=== PATIENT | female | born 1985 | race Caucasian/White ===

== ENCOUNTER 2016-06-18 12:14 | Emergency (ER) | payer OTHER ==
[2016-06-18 15:20] VITALS: BP 114/68
[2016-06-18] MEDS ORDERED: NS 0.9% 1000 ML* 1,000 ML IV ONE ×2 (16:42→18:23)
[2016-06-18] MEDS ORDERED: Oseltamivir CAP* 75 MG PO ONE (16:42)
[2016-06-18] MEDS ORDERED: Metoclopramide IV* 5 MG/ML 2 ML VIAL IV ONE (16:42)
--- NOTE | 2016-06-18 17:47 | RAD ---
INDICATION: Chest pain. Requisition lists left lower lobectomy as part of the patient's medical history. COMPARISON: Numerous previous chest x-rays, most recently dated September 03, 2011 TECHNIQUE: PA and lateral views of the chest were obtained. FINDINGS: The heart and mediastinum are normal in size and contour. Linear density is seen at the left lung base similar in appearance to the previous chest x-ray. Otherwise the lungs are grossly clear. There is no evidence of large pleural effusion. Visualized bones are normal for the patient's age. There is no radiographic evidence of free air beneath the diaphragm IMPRESSION: No radiographic evidence of acute cardiopulmonary disease.
[2016-06-18 18:00] LABS: Hematocrit 37 % (35-47); Hemoglobin 12.8 g/dl (12.0-16.0); Mean Corpuscular HGB Conc 35 g/dl (31-36); Mean Corpuscular Hemoglobin 32 pg (27-31); Mean Corpuscular Volume 91 fL (80-97); Mean Platelet Volume 8 um3 (7.4-10.4); Red Blood Count 4.03 10^6/ul (4.0-5.4); Red Cell Distribution Width 12 % (10.5-15); White Blood Count 5.1 10^3/ul (3.5-10.8)
[2016-06-18 18:09] LABS: Albumin 3.9 g/dL (3.2-5.2); BUN/Creatinine Ratio 7.3 (8-20); Calcium 9.2 mg/dL (8.6-10.3); EGFR African American 163.7 (>60); EGFR Non-African American 127.3 (>60); Globulin 3.1 g/dL (2-4); Potassium 3.4 mmol/L (3.5-5.0); Total Bilirubin 0.3 mg/dL (0.2-1.0)
[2016-06-18 18:11] LABS: Troponin I 0.01 ng/mL (<0.04)
[2016-06-18] MEDS ORDERED: Metoclopramide TAB* 10 MG PO ONE (19:20)
[2016-06-18] MEDS ORDERED: Acetaminophen TAB* 325 MG PO ONE (19:20)
--- NOTE | 2016-06-21 07:56 | ED ---
Dennis Fisher Rebecca, scribed for Mike Nielsen MD on 06/18/16 at 1629 . - HPI Summary HPI Summary: Pt is a 31 y/o F who presents to ED c/o influenza exacerbation. Pt c/o SOB, vomiting and abd cramping. SOB began gradually a few days ago, has been constant since onset and was at its worse this morning at 0400. Abd cramping is diffuse and currently ranked 7/10. Pt was evaluated by her PCP this morning where she tested positive for influenza type A. She was given Tamiflu and advised that if her fever elevated beyond 101, to come to ED. At noon she took Tylenol and Tamiflu, vomited 1x at 1245. Sx aggravated and alleviated by nothing. Denies vaginal bleeding. Confirms that she received a flu shot this year. Pt is 13 weeks . PSHx left lower lobectomy. 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 A0 IF THERE IS ONE, PLEASE SEE DICTATION BY DR. NIELSEN FOR FURTHER INFORMATION. - History of Current Complaint Chief Complaint: EDNauseaVomitDiarrh Stated Complaint: 13WKS PREG/ + FOR FLU Time Seen by Provider: 06/18/16 16:26 Hx Obtained From: Patient Chief Complaint: Other: - Influenza Onset/Duration: Started Days Ago - 2 days ago, Still Present Timing: Constant Severity: Moderate Current Severity: Moderate Pain Intensity: 7 Location of Pain: Diffuse Character: Cramping Aggravating Factors: Nothing Alleviating Factors: Nothing Associated Signs and Symptoms: Positive: Fever, Vomiting, Other: - SOB. Negative: Vaginal Bleeding or Discharge - Assessment Hx Now: Yes Hx : 1 Hx Para: 0 Vaginal Bleeding Amount: None - Additional Pertinent History Primary Care Physician: Dr. Zhou - Allergies/Home Medications Allergies/Adverse Reactions: Allergies Allergy/AdvReac Type Severity Reaction Status Date / Time Erythromycin Allergy Severe Rash Verified 06/18/16 17:16 Amoxicillin [From Augmentin] Allergy Itching Verified 06/18/16 17:16 Clavulanic Acid Allergy Itching Verified 06/18/16 17:16 [From Augmentin] Duloxetine [From Cymbalta] Allergy Unknown Verified 06/18/16 17:16 Reaction Details Cymbalta Allergy See Comment Uncoded 06/18/16 17:18 PMH/Surg Hx/FS Hx/Imm Hx Endocrine/Hematology History: Reports: Other Endocrine/Hematological Disorders - "immune disorder" Cardiovascular History: Denies: Hx Pacemaker/ICD Sensory History: Denies: Hx Hearing Aid Psychiatric History: Denies: Hx Panic Disorder - Surgical History Surgery Procedure, Year, and Place: LUNG LOBECTOMY LLL 2012 Infectious Disease History: Yes Infectious Disease History: Denies: Traveled Outside the [place] in Last 30 Days - Family History Known Family History: Positive: Other - HLD - Social History Lives: With Family Alcohol Use: Occasionally Hx Substance Use: No Substance Use Type: Reports: None Hx Tobacco Use: No Smoking Status (MU): Never Smoked Tobacco Review of Systems - ROS Summary Review of Systems Summary: IF THERE IS ONE, PLEASE SEE DICTATION BY DR. NIELSEN FOR FURTHER INFORMATION. Positive: Shortness Of Breath Positive: Abdominal Pain - cramping, Vomiting - x Positive: other - Denies vaginal bleeding All Other Systems Reviewed And Are Negative: Yes Physical Exam - Summary Physical Exam Summary: GENERAL: Awake, alert, oriented, no acute distress, very pleasant HEAD/FACE: Head is normocephalic, atraumatic EYES: Anicteric sclera, clear conjunctiva ENT: Mucous membranes moist, no erythema, no discharge, no lesions, neck is supple, trachea is midline, no JVD CARDIAC: Regular rhythm, tachycardic, S1, S2, no rub, no murmur, no gallop, 2+ radial and pedal pulses bilaterally RESPIRATORY: Clear to auscultation bilaterally with no rales, rhonchi, or wheezes, non-tender ABDOMEN: Bowel sounds positive, no bruit, soft, non-tender, no CVA tenderness EXTREMITIES: No edema, warm, dry, moving all extremities in a grossly normal manner NEUROLOGICAL: Mood is appropriate, moving all extremities in a grossly normal manner IF THERE IS ONE, PLEASE SEE DICTATION BY DR. NIELSEN FOR FURTHER INFORMATION. - Physical Exam Triage Information Reviewed: Yes Vital Signs Reviewed: Yes Diagnostics - Vital Signs Vital Signs Temp Pulse Resp BP Pulse Ox 06/18/16 15:20 99.1 F 89 16 114/68 100 06/18/16 12:34 100 F 102 16 133/67 100 - Laboratory Result Diagrams: 06/18/16 17:33 06/18/16 17:33 Lab Statement: Any lab studies that have been ordered have been reviewed, and results considered in the medical decision making process. - Radiology CXR Xray Interpretation: No Acute Changes Radiology Interpretation Completed By: Radiologist - EKG 1714 Cardiac Rate: NL - 85 bpm EKG Rhythm: Sinus Rhythm - normal EKG Interpretation: No acute ischemia Re-Evaluation - Re-Evaluation First Eval Re-Evaluation Time: 16:51 Change: Unchanged Comment: Counseled pt about how much radiation a CXR entails. Second Eval Re-Evaluation Time: 18:32 Change: Improved Comment: Pt is feeling significantly better. Course/Dx - Diagnoses Provider Diagnoses: Influenza - Provider Notifications Discussed Care Of Patient With: Dr. Zhou's nurse, who will consult with the physician director construction services. After consulting with Dr. Batres, he advised that pt be d/c to home after receiving 2L of fluids. Time Discussed With Above Provider: 18:38 Discharge - Discharge Plan Condition: Stable Disposition: HOME Patient Education Materials: Influenza (ED) Referrals: Armond Zhou MD [Primary Care Provider] - 2 Days Additional Instructions: Follow up with your primary care physician within the next 2 days. PLEASE RETURN TO THE EMERGENCY DEPARTMENT FOR NAUSEA, VOMITING, FEVER, PHOTOPHOBIA, CHEST PAIN, OR IF SYMPTOMS WORSEN. The documentation as recorded by the Dennis kidd Rebecca accurately reflects the service I personally performed and the decisions made by me, Mike Nielsen MD.
== END 2016-06-18 20:06 | disposition home or self-care (01) ==
LOC: ED 12:14
DX: J11.1 Influenza due to unidentified influenza virus with other respiratory manifestations (principal); R10.9 Unspecified abdominal pain; R06.02 Shortness of breath; R11.10 Vomiting, unspecified; R50.9 Fever, unspecified
CPT/HCPCS: 36415; 71020; 80053; 82550; 82553; 83605; 83874; 83880; 84484; 85025; 85610; 85730; 87040; 93005; 96374; 99282; A9270-GY; J2765

== ENCOUNTER 2016-12-20 23:23 | Inpatient (IN) | payer OTHER ==
[2016-12-21] MEDS ORDERED: Penicillin G Potassium IV* 5 MILLION.UNITS VIAL ONE (01:23)
[2016-12-21 01:29] LABS: Hematocrit 34 % (35-47); Hemoglobin 11.7 g/dl (12.0-16.0); Mean Corpuscular HGB Conc 34 g/dl (31-36); Mean Corpuscular Hemoglobin 32 pg (27-31); Mean Corpuscular Volume 92 fL (80-97); Mean Platelet Volume 8 um3 (7.4-10.4); Red Blood Count 3.71 10^6/ul (4.0-5.4); Red Cell Distribution Width 14 % (10.5-15); White Blood Count 9.9 10^3/ul (3.5-10.8)
[2016-12-21] MEDS ORDERED: OBEPIDURAL* 250 ML ONE (04:38)
[2016-12-21] MEDS ORDERED: Phenylephrine IV* 40 MCG/ML 10 ML SYRINGE IV PUSH PRN ×2 (05:45)
[2016-12-21] MEDS ORDERED: Sodium Citrate/Citric Acid* 15 ML UDC PO PRN (05:45)
[2016-12-21] MEDS ORDERED: Famotidine TAB* 20 MG PO PRN (05:45)
[2016-12-21] MEDS ORDERED: OBEPIDURAL* 250 ML EPIDURAL SCH (06:00)
[2016-12-21] MEDS ORDERED: Oxytocin in LR* 20 UNITS/1,000 ML BAG IVPB ONE (09:36)
[2016-12-21] MEDS ORDERED: Acetaminophen TAB* 325 MG ONE (13:33)
[2016-12-21] MEDS ORDERED: ceFOXitin 2 GM IVPREMIX* 2 GM/50 ML BAG ONE (15:11)
[2016-12-21] MEDS ORDERED: Ondansetron INJ* 2 MG/ML VIAL ONE (15:39)
[2016-12-21] MEDS ORDERED: Lidocaine 2% PF* 10 ML AMP ONE (15:39)
[2016-12-21] MEDS ORDERED: Ketorolac INJ* 30 MG/ML 1 ML VIAL ONE (15:39)
[2016-12-21] MEDS ORDERED: OXYTOCIN* 10 UNITS/ML 1 ML VIAL ONE (15:39)
[2016-12-21] MEDS ORDERED: Morphine PF AMP (0.5MG/ML)* 5 MG/10 ML AMP ONE (15:42)
[2016-12-21] MEDS ORDERED: fentaNYL* 50 MCG/ML 2 ML VIAL (100 MCG VIAL) ONE (16:00)
[2016-12-21] MEDS ORDERED: Acetaminophen IV 1GM/100ML * 100 ML IVPB ONE (16:19)
[2016-12-21] MEDS ORDERED: DiMENhydriNATE IV* 50 MG/ML VIAL IV PUSH PRN (16:19)
[2016-12-21] MEDS ORDERED: HYDROmorphone* 1 MG/ML 1 ML SYR IV PRN (16:19)
[2016-12-21] MEDS ORDERED: oxyCODONE TAB* 5 MG TAB PO PRN (16:19)
[2016-12-21] MEDS ORDERED: oxyCODONE/Acetamin 5/325 MG* TAB PO PRN (16:20)
[2016-12-21] MEDS ORDERED: Naloxone* 0.4 MG/ML 1 ML VIAL IV PRN (16:20)
[2016-12-21] MEDS ORDERED: Ondansetron INJ* 2 MG/ML VIAL IV PRN (16:20)
[2016-12-21] MEDS ORDERED: Nalbuphine* 20 MG/ML 1 ML VIAL IV PRN (16:20)
[2016-12-21] MEDS ORDERED: Glycerin ADULT SUPP PR PRN (16:35)
[2016-12-21] MEDS ORDERED: Dibucaine 1% 28.35 GM TUBE PR PRN (16:35)
[2016-12-21] MEDS ORDERED: Zolpidem TAB* 5 MG PO PRN (16:35)
[2016-12-21] MEDS ORDERED: Witch Hazel PAD* JAR TOPICAL PRN (16:35)
[2016-12-21] MEDS ORDERED: Oxytocin in LR* 20 UNITS/1,000 ML BAG IVPB SCH (17:00)
[2016-12-21] MEDS: Simethicone CHEW TAB* 80 MG PO SCH ×2 (18:54→20:58)
[2016-12-21] MEDS: Docusate CAP* 100 MG PO SCH (20:58)
[2016-12-21] MEDS: Ibuprofen TAB* 600 MG PO SCH (20:59)
[2016-12-21] MEDS ORDERED: Mometasone/Formoter 200/5 MDI INH SCH (21:00)
[2016-12-22] MEDS: Ibuprofen TAB* 600 MG PO SCH (03:50)
[2016-12-22] MEDS ORDERED: oxyCODONE/Acetamin 5/325 MG* TAB PO PRN (08:00)
[2016-12-22] MEDS ORDERED: Acetaminophen TAB* 325 MG PO PRN (08:00)
[2016-12-22 09:23] LABS: Hematocrit 29 % (35-47); Hemoglobin 9.5 g/dl (12.0-16.0); Mean Corpuscular HGB Conc 33 g/dl (31-36); Mean Corpuscular Hemoglobin 31 pg (27-31); Mean Corpuscular Volume 94 fL (80-97); Mean Platelet Volume 8 um3 (7.4-10.4); Red Blood Count 3.06 10^6/ul (4.0-5.4); Red Cell Distribution Width 14 % (10.5-15); White Blood Count 11.1 10^3/ul (3.5-10.8)
[2016-12-22] MEDS: Simethicone CHEW TAB* 80 MG PO SCH ×4 (09:26→20:38)
[2016-12-22] MEDS: Cetirizine* 10 MG TAB PO SCH (09:26)
[2016-12-22] MEDS: Docusate CAP* 100 MG PO SCH ×3 (09:26→20:37)
[2016-12-22] MEDS: Sertraline* 25 MG TAB PO SCH (09:27)
[2016-12-22] MEDS: Fluticasone NASAL SPRAY 50MCG* 16 gm SPRAY BTL BOTH NARES SCH (09:27)
[2016-12-22] MEDS: Ferrous Gluconate TAB* 324 MG TAB PO SCH ×2 (09:28→20:37)
[2016-12-22] MEDS: PTO - Budesonide/Formote 160/4.5(NF) MDI INH SCH ×2 (10:19→20:38)
[2016-12-22] MEDS: Ibuprofen TAB* 600 MG PO PRN ×3 (10:20→23:16)
[2016-12-22] MEDS: oxyCODONE/Acetamin 5/325 MG* TAB PO PRN ×2 (10:55→19:42)
--- NOTE | 2016-12-22 13:25 | OP ---
DATE OF OPERATION: 12/21/16 - ROOM #[id number] DATE OF : 81 SURGEON: Mike Lee MD ASSISTANTS: Cora Powell MD and Arian Alas CNM ANESTHESIA: Epidural anesthesia. PRE-OP DIAGNOSIS: Arrest of descent. POST-OP DIAGNOSES: Arrest of descent plus macrosomia. OPERATIVE PROCEDURE: Low transverse section. ESTIMATED BLOOD LOSS: 600 cc. FINDINGS: This is a 31-year-old 1, para 0, who presented in labor, progressed through early labor through the night and got an epidural around 8 a.m., was started on Pitocin, and decreasing contractions and artificial rupture of membranes showed thin meconium. She progressed up to a rim cervix, but then did not progress beyond this for 4 hours despite adequate labor and Pitocin, and decision made to proceed with low transverse section. At the time of , she had a viable female, Apgars 9 and 9, the weight was 9 pounds 5 ounces. There was a 2-cm subserosal fibroid on the anterior part of the uterus; otherwise, tubes and ovaries appeared normal. DESCRIPTION OF PROCEDURE: The patient identified and procedure identified as a low transverse section, taken to the operating room and prepped and draped in the usual fashion in the left lateral recumbent position under epidural anesthesia. A Pfannenstiel incision was made in the abdomen, carried down through the fat, fascia, and peritoneum. A bladder flap was created via blunt dissection. A transverse incision was made in the lower uterine segment and extended laterally using blunt dissection. The above infant was delivered through the incision with ease. Cord was doubly clamped and cut, and the infant was handed to awaiting aircraft structural repair mechanic. Cord blood was obtained. Placenta delivered manually. The uterus was wiped out with a wet lap sponge. The uterine incision was then closed using 0 Polysorb in a running fashion. A second layer was used to imbricate the first layer. Good hemostasis was achieved with 0 Polysorb figure-of-8 sutures. The uterus was placed back into the abdominal cavity. Good hemostasis was again verified in the gutters and peritoneum was then closed using 3-0 Polysorb in a running fashion. The fascia was then closed using 0 Polysorb in a running fashion. Good hemostasis in the subcu and the skin was closed using 4-0 Monocryl in a subcuticular fashion. Mastisol and Steri-Strips were applied. All sponge and instrument counts were correct and the patient returned to recovery room in stable condition. [id number]/[facility] #: [id number] DANIELA
--- NOTE | 2016-12-22 13:52 | PTEDU ---
Patient Name: STALIN COWART NATHANVALERIETHERESE STALIN selected video: Never Ever Shake a Baby to view on 12/22/2016 at 1:51:18 PM from [facility] [place] [id number]
[2016-12-23] MEDS: Simethicone CHEW TAB* 80 MG PO SCH ×4 (08:03→20:56)
[2016-12-23] MEDS: Ferrous Gluconate TAB* 324 MG TAB PO SCH ×2 (08:03→20:56)
[2016-12-23] MEDS: Ibuprofen TAB* 600 MG PO PRN ×3 (08:03→20:57)
[2016-12-23] MEDS: Docusate CAP* 100 MG PO SCH ×3 (08:03→20:56)
[2016-12-23] MEDS: Cetirizine* 10 MG TAB PO SCH (08:04)
[2016-12-23] MEDS: Fluticasone NASAL SPRAY 50MCG* 16 gm SPRAY BTL BOTH NARES SCH (08:06)
[2016-12-23] MEDS: PTO - Budesonide/Formote 160/4.5(NF) MDI INH SCH ×2 (08:07→20:57)
[2016-12-23] MEDS: oxyCODONE/Acetamin 5/325 MG* TAB PO PRN ×3 (08:09→17:28)
[2016-12-23] MEDS: Sertraline* 25 MG TAB PO SCH (08:38)
--- NOTE | 2016-12-23 09:24 | PTEDU ---
Patient Name: STALIN COWART NATHANSTALIN DENIS selected video: Follow Me Mum: [facility] [place] [facility] Successful to view on 017 at 9:24:31 AM from [id number]
[2016-12-24] MEDS: oxyCODONE/Acetamin 5/325 MG* TAB PO PRN ×2 (00:04→08:46)
[2016-12-24] MEDS: Ibuprofen TAB* 600 MG PO PRN ×2 (03:36→09:55)
[2016-12-24] MEDS: Docusate CAP* 100 MG PO SCH (08:38)
[2016-12-24] MEDS: Simethicone CHEW TAB* 80 MG PO SCH (08:38)
[2016-12-24] MEDS: Cetirizine* 10 MG TAB PO SCH (08:38)
[2016-12-24] MEDS: Ferrous Gluconate TAB* 324 MG TAB PO SCH (08:38)
[2016-12-24] MEDS: Sertraline* 25 MG TAB PO SCH (08:39)
[2016-12-24] MEDS: Fluticasone NASAL SPRAY 50MCG* 16 gm SPRAY BTL BOTH NARES SCH (08:39)
[2016-12-24 08:53] VITALS: BP 109/65
== END 2016-12-24 13:16 | disposition home or self-care (01) | DRG 766 ==
LOC: MCHOBOUT 23:23 → MCHOB 12-21 00:54
PROVIDERS: ADMIT Obstetrics & Gynecology; ATTEND Obstetrics & Gynecology
PROC: 10907ZC Drainage of Amniotic Fluid, Therapeutic from Products of Conception, Via Natural or Artificial Opening (ICD-10-PCS; 2016-12-21)
PROC: 10D00Z1 Extraction of Products of Conception, Low, Open Approach (ICD-10-PCS; principal; 2016-12-21 15:31)
DX: O32.4XX0 Maternal care for high head at term, not applicable or unspecified (principal); F32.9 Major depressive disorder, single episode, unspecified; O99.824 Streptococcus B carrier state complicating childbirth; O99.344 Other mental disorders complicating childbirth; F41.9 Anxiety disorder, unspecified; Z3A.39 39 weeks gestation of pregnancy; Z37.0 Single live birth; O90.81 Anemia of the puerperium; D64.9 Anemia, unspecified
CPT/HCPCS: 36415; 85025; 85027; 86850; 86900; 86901; A9270-GY; J0694; J1885; J2001; J2405; J2540; J2590; J3010

== ENCOUNTER 2017-06-04 04:58 | Emergency (ER) | payer OTHER ==
[2017-06-04] MEDS ORDERED: cefTRIAXone(*) 1 GM in NS 0.9% 50 ML* 50 ML IVPB ONE (05:34)
[2017-06-04] MEDS ORDERED: Ondansetron INJ* 2 MG/ML VIAL IV ONE (05:34)
[2017-06-04] MEDS ORDERED: Ketorolac INJ* 30 MG/ML 1 ML VIAL IV PUSH ONE (05:36)
[2017-06-04] MEDS: NS 0.9% 1000 ML* 2,000 ML IV ONE ×2 (05:40→05:41)
[2017-06-04 06:07] LABS: Hematocrit 38 % (35-47); Hemoglobin 13.1 g/dl (12.0-16.0); Mean Corpuscular HGB Conc 35 g/dl (31-36); Mean Corpuscular Hemoglobin 31 pg (27-31); Mean Corpuscular Volume 91 fL (80-97); Mean Platelet Volume 7 um3 (7.4-10.4); Red Blood Count 4.19 10^6/ul (4.0-5.4); Red Cell Distribution Width 12 % (10.5-15)
[2017-06-04 06:20] LABS: Albumin 4.1 g/dL (3.2-5.2); BUN/Creatinine Ratio 17.6 (8-20); EGFR African American 127.4 (>60); Globulin 2.9 g/dL (2-4); Potassium 3.4 mmol/L (3.5-5.0); Total Bilirubin 0.4 mg/dL (0.2-1.0)
[2017-06-04] MEDS ORDERED: Acetaminophen TAB* 325 MG PO ONE (07:34)
[2017-06-04 08:56] VITALS: BP 114/70
--- NOTE | 2017-06-06 04:12 | ED ---
Ethel Fisher Gabriel, scribed for Chely Nieves MD on 06/04/17 at 0713 . Progress - Progress Note Progress Note: This patient was signed out from Dr. Lemus, pending disposition, awaiting lab results. The patients condition is stable and will be discharged to home with Dx of mastitis. Re-Evaluation - Re-Evaluation First Eval Re-Evaluation Time: 07:40 Change: Improved - Patients vomiting is controlled and she feels ready to go home. She understands she will be switching antibiotics and she request antiemetic. Patient has been informed that keflex and Zofran are safe for . Course/Dx - Course Course Of Treatment: Pt given ceftriaxone IV, zofran IV, toradol IV and acetaminophen with good results. Pt to change antibiotics to cephalexin from dicloxacillin, and may take zofran as needed. Pt pumped her breasts in ED, and is advised to continue nursing and f/u with COSTING MANAGER in 1-2 days, definite. - Diagnoses Provider Diagnoses: Mastitis The documentation as recorded by the Ethel kidd Gabriel accurately reflects the service I personally performed and the decisions made by Ezequiel sierra Barbara J, MD.
== END 2017-06-04 09:11 | disposition home or self-care (01) ==
LOC: ED 04:58
DX: N61.0 Mastitis without abscess (principal)
CPT/HCPCS: 36415; 80053; 83605; 85025; 87040; 96361; 96374; 96375; 99284; A9270-GY; J0696; J1885; J2405

== ENCOUNTER 2019-05-30 21:40 | Emergency (ER) | payer OTHER ==
--- NOTE | 2019-05-30 22:09 | ED ---
GI/ HPI - HPI Summary HPI Summary: Patient complains of unusual heavy bleeding with her menses which started yesterday. Heavy bleeding started today at 7 PM, patient states she has been changing tampons and pads frequently. Associated symptoms are lightheadedness and sensation of pressure in her bilateral lower back. Patient states she believes she is "passing tissue". Patient states she is trying to get with her without the use of hormones, unknown if . Patient denies history of ovarian cysts or heavy bleeding with menses, fever, cough, sore throat, CP, SOB, N/V/D, abdominal pain, change in urine, change in BM. Medical history is anemia, asthma. Abdominal surgical history is none. Patient denies abdominal pain, vaginal discharge or pain, urine symptoms - History of Current Complaint Chief Complaint: EDVaginalBleeding Time Seen by Provider: 05/30/19 22:04 Stated Complaint: POS MISCARRIAGE PER PT Hx Obtained From: Patient Onset/Duration: Started Hours Ago Timing: Constant Severity: Moderate Current Severity: Moderate Vaginal Bleeding Description: Bright Red Pain Intensity: 99 Location of Pain: None Associated Signs and Symptoms: Positive: Negative - Additional Pertinent History Primary Care Physician: Dr. Zhou - Allergy/Home Medications Allergies/Adverse Reactions: Allergies Allergy/AdvReac Type Severity Reaction Status Date / Time amoxicillin Allergy Itching Verified 05/30/19 21:52 clavulanic acid Allergy Itching Verified 05/30/19 21:52 [From Augmentin] duloxetine [From Cymbalta] Allergy See Comment Verified 05/30/19 21:54 erythromycin base Allergy Rash Verified 05/30/19 21:52 mushroom Allergy Hives Verified 05/30/19 21:54 mustard Allergy Hives Verified 05/30/19 21:54 PMH/Surg Hx/FS Hx/Imm Hx Endocrine/Hematology History: Reports: Other Endocrine/Hematological Disorders - "immune disorder" Cardiovascular History: Denies: Hx Pacemaker/ICD Respiratory History: Reports: Hx Asthma History: Denies: Hx Dialysis Sensory History: Denies: Hx Hearing Aid Opthamlomology History: Denies: Hx Eye Injury EENT History: Denies: Hx Deafness Neurological History: Denies: Hx Dementia Psychiatric History: Reports: Hx Anxiety, Hx Depression Denies: Hx Panic Disorder - Surgical History Surgery Procedure, Year, and Place: LUNG LOBECTOMY LLL 2011 Infectious Disease History: No Infectious Disease History: Denies: Traveled Outside the [place] in Last 30 Days - Family History Known Family History: Positive: Other - HLD - Social History Alcohol Use: Rare Hx Substance Use: No Substance Use Type: Reports: None Hx Tobacco Use: No Smoking Status (MU): Never Smoked Tobacco Review of Systems Constitutional: Negative Eyes: Negative ENT: Negative Cardiovascular: Negative Respiratory: Negative Gastrointestinal: Negative Positive: other Musculoskeletal: Negative Skin: Negative Neurological: Negative Psychological: Normal All Other Systems Reviewed And Are Negative: Yes Physical Exam - Summary Physical Exam Summary: Abdomen soft nontender Triage Information Reviewed: Yes Vital Signs On Initial Exam: Initial Vitals Temp Pulse Resp BP Pulse Ox 98.3 F 123 18 148/113 99 05/30/19 21:45 05/30/19 21:45 05/30/19 21:45 05/30/19 21:45 05/30/19 21:45 Vital Signs Reviewed: Yes Appearance: Positive: Well-Appearing Skin: Positive: Warm Head/Face: Positive: Normal Head/Face Inspection Eyes: Positive: Normal Neck: Positive: Supple Respiratory/Lung Sounds: Positive: Clear to Auscultation Cardiovascular: Positive: Normal Abdomen Description: Positive: Nontender Musculoskeletal: Positive: Normal Neurological: Positive: Normal Psychiatric: Positive: Normal AVPU Assessment: Alert - Rayshawn Coma Scale Best Eye Response: 4 - Spontaneous Best Motor Response: 6 - Obeys Commands Best Verbal Response: 5 - Oriented Coma Scale Total: 15 Procedures - Sedation Patient Received Moderate/Deep Sedation with Procedure: No Diagnostics - Vital Signs Vital Signs Temp Pulse Resp BP Pulse Ox 05/30/19 22:08 98 133/82 100 05/30/19 22:07 94 99 05/30/19 21:45 98.3 F 123 18 148/113 99 - Laboratory Result Diagrams: 05/30/19 22:56 05/30/19 22:56 Lab Statement: Any lab studies that have been ordered have been reviewed, and results considered in the medical decision making process. GIGU Course/Dx - Course Course Of Treatment: Patient complains of unusual heavy bleeding with her menses which started yesterday. Heavy bleeding started today at 7 PM, patient states she has been changing tampons and pads frequently. Associated symptoms are lightheadedness and sensation of pressure in her bilateral lower back. Patient states she believes she is "passing tissue". Patient states she is trying to get with her without the use of hormones, unknown if . Patient denies history of ovarian cysts or heavy bleeding with menses , fever, cough, sore throat, CP, SOB, N/V/D, abdominal pain, change in urine, change in BM. Medical history is anemia, asthma. Abdominal surgical history is none. Patient denies abdominal pain, vaginal discharge or pain, urine symptoms. Vital signs within normal limits. Labs unremarkable. negative. Ultrasound transvaginal negative. - Diagnoses Provider Diagnoses: Dysfunctional uterine bleeding Discharge ED - Sign-Out/Discharge Documenting (check all that apply): Patient Departure - Discharge Plan Condition: Stable Disposition: HOME Patient Education Materials: Dysfunctional Uterine Bleeding (ED) Referrals: Armond hZou MD [Primary Care Provider] - Additional Instructions: Follow-up with your INSPECTOR REPAIRER SANDSTONE Friday to arrange for further evaluation. Return to the ED for any worsening symptoms. - Billing Disposition and Condition Condition: STABLE Disposition: Home
--- OUTSIDE RECORDS SUMMARY | 2019-05-30 22:44 | XMS REPORT | Continuity of Care Document ---
:1985 External Reference #:[id number] Author Name Cora Powell MD (transmitted by agent of provider Cynthia Hart ) Address [address] [place] [id number] Care Team Providers Name Role Phone Armond Zhou M.D. 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 Problems Provider Date Gynecologic examination Jayne Correia MD Onset: 10/22/2011 Screening for malignant neoplasm of cervix Jayne Correia MD Onset: 2011 Breast signs and symptoms Jayne Correia MD Onset: 04/09/2012 Social History Type Date Description Comments Sex Unknown Tobacco Use Start: Unknown Patient has never smoked Smoking Status Reviewed: 04/21/19 Patient has never smoked Allergies, Adverse Reactions, Alerts Active Allergies Reaction Severity Comments Date Cymbalta 12/30/2016 Erythromycin 12/30/2016 Inactive Allergies Augmentin can take penicillin and amoxicillin see prtl mess11/06/1604/10 Medications Active Medications SIG Qnty Indications Ordering Provider Date Dicloxacillin Sodium 1 capsule by jean marie Baron CNM 05/06/2017 mouth every 6 500mg Capsules hours Albuterol Inhalation 2 Puffs PO Q4 1units Kylah Borden, 10/30/2004 Hours prn ANP-C 0.083% Solution Symbicort 2 puffs bid Unknown 160-4.5mcg/Act Aerosol Vitamin D3 1 po qd Unknown 2000Unit Tablets Sertraline HCL Unknown Multivitamin Unknown Plus Dha Gammagard Unknown 1GM/10ML Solution Ibuprofen take one tab by Unknown 600mg Tablets mouth every 6 hours as needed pain Immunizations CPT Code Status Date Vaccine Lot # [id number] Given 11/15/2016 Tetnus, Diptheria Toxoids And Acellular Pertussis, [id number] PT > 7Yrs Old Vital Signs Date Vital Result Comment 04/21/2019 9:05am BP Systolic 130 mmHg BP Diastolic 78 mmHg Height 61.5 inches 5'1.50" Weight 144.00 lb BMI (Body Mass Index) 26.8 kg/m2 Last Menstrual Period [id number] 1 Parity 1 02/04/2017 11:38am BP Systolic 120 mmHg BP Diastolic 60 mmHg Height 61.5 inches 5'1.50" Weight 142.00 lb BMI (Body Mass Index) 26.4 kg/m2 Last Menstrual Period [id number] 1 Parity 1 Results Description No Information Available Procedures Description No Information Available Medical Devices Description No Information Available Encounters Description No Information Available Assessments Description No Information Available Plan of Treatment No Information Available Functional Status Description No Information Available Mental Status Description No Information Available Referrals Description No Information Available
--- OUTSIDE RECORDS SUMMARY | 2019-05-30 22:44 | XMS REPORT | Continuity of Care Document ---
:1985 External Reference #:[id number] Author Name Alla Cohen MD (transmitted by agent of provider Selam Villa) Address [address] [place] [address] [place] [address] Care Team Providers Name Role Phone Armond Zhou MD - Family Care Team Information Boiling House Oiler [phone] Medicine Cora Powell MD - Care Team Information Boiling House Oiler [phone] Obstetrics & Gynecology Problems Description No Information Available Social History Type Date Description Comments Sex Unknown ETOH Use Denies alcohol use Tobacco Use Start: Unknown Patient has never smoked Smoking Status Reviewed: 05/06/19 Patient has never smoked Allergies, Adverse Reactions, Alerts Active Allergies Reaction Severity Comments Date Erythromycin 05/04/2019 Cymbalta 05/04/2019 Adhesive Blisters 05/06/2019 Clavulanate Itching 05/06/2019 Augmentin Itching 05/06/2019 Medications Active Medications SIG Qnty Indications Ordering Provider Date Sertraline HCL 2 by mouth every Unknown 50mg Tablets day Vitamin D 1 by mouth every Unknown 2000Unit Tablets day Albuterol Sulfate 1-2 puffs every Unknown Powder 4 hours as needed sob 1 by mouth every Unknown Tablets day Ferrex 150 1 by mouth every Unknown 150mg Capsules day [facility] Fluticasone 2 sprays each Unknown Proprionate Nasal [place] nostril twice a day 50mcg/Act Suspension Omeprazole 1 by mouth every Unknown 20mg Capsules DR day Magnesium 1 by mouth every Unknown 250mg Tablets day Alprazolam 1 by mouth as Unknown 0.5mg Tablets needed Dha Unknown 200mg Capsules Levocetirizine 1 every day as Unknown Dihydrochloride needed 5mg Tablets Immunizations Description No Information Available Vital Signs Date Vital Result Comment 05/06/2019 3:32pm Height 61.5 inches 5'1.50" Weight 137.00 lb Heart Rate 80 /min BP Systolic Sitting 104 mmHg BP Diastolic Sitting 68 mmHg Respiratory Rate 16 /min Body Temperature 98.3 F BMI (Body Mass Index) 25.5 kg/m2 Results Description No Information Available Procedures Description No Information Available Medical Devices Description No Information Available Encounters Description No Information Available Assessments Description No Information Available Plan of Treatment Future Appointment(s):06/23/2019 10:30 am - Alla Cohen MD at [facility] Functional Status Description No Information Available Mental Status Description No Information Available Referrals Description No Information Available
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
--- OUTSIDE RECORDS SUMMARY | 2019-05-30 22:44 | XMS REPORT | Continuity of Care Document ---
:1985 External Reference #:[id number] Author Name Trina Bower MD Address [address] [place] [id number] Care Team Providers Name Role Phone Armond Zhou MD - Family Medicine Care Team Information [employer] Problems Active Problems Provider Date Nausea and vomiting Nitin Guy M.D. Onset: 01/17/2014 Epigastric pain Thony Henson MD Onset: 12/14/2013 Nausea Thony Henson MD Onset: 12/14/2013 Social History Type Date Description Comments Sex Unknown Tobacco Use Start: Unknown Patient has never smoked Smoking Status Reviewed: 03/05/19 Patient has never smoked Allergies, Adverse Reactions, Alerts Active Allergies Reaction Severity Comments Date Erythromycin 12/14/2013 Augmentin 12/14/2013 Cymbalta 12/14/2013 Adhesives 12/14/2013 Singulair 12/14/2013 Medications Active Medications SIG Qnty Indications Ordering Date Provider Omeprazole take 1 capsule 30caps Trina 04/14/[address] by mouth daily. MD Cheli take 30-60 minutes before a meal. Symbicort 2 Puffs bid Trina 03/05/2019 160-4.5mcg/Act MD Cheli Aerosol Suprep Bowel Prep Kit as directed 1units Trina 03/05/2019 MD Cheli 17.5-3.13-1.6GM/177ML Solution Ondansetron one sl every 6h 30tabs Nitin Guy, 05/02/2015 4mg Tablets as needed M.D. Dispers Proair HFA Unknown 108(90Base) mcg/Act Aerosol Epipen 2-Nikolay Unknown 0.3mg/0.3ML Solution Auto-Inject Albuterol Sulfate Armond Zhou MD 1.25mg/3ML Nebulizer Triamcinolone Acetonide Unknown 55mcg/Act Inhaler Igg Therapy Unknown Fluticasone Propionate 2 Sprays Daily Unknown 50mcg/Act Suspension Sertraline HCL Daily Unknown 100mg Tablets Levocetirizine Daily Unknown Dihydrochloride 5mg Tablets Ferrex 150 take 1 capsule Unknown 150mg Capsules by mouth daily at night Gammagard 10 ml every week Unknown 1GM/10ML Solution History Medications Nexium take 1 capsule by yuri Bower, 04/14/2019 - 40mg mouth daily. 04/14/[address] Walsh Description No Information Available Vital Signs Date Vital Result Comment 03/05/2019 2:51pm Height 62 inches 5'2" Weight 136.00 lb BP Systolic 133 mmHg BP Diastolic 83 mmHg Heart Rate 71 /min BMI (Body Mass Index) 24.9 kg/m2 03/01/2016 8:18am Height 62 inches 5'2" Weight 135.00 lb BP Systolic 110 mmHg BP Diastolic 70 mmHg BMI (Body Mass Index) 24.7 kg/m2 Results Test Acquired Facility Test Result H/L Range Note Date Laboratory test 05/05/2019 [facility] [place] 1 finding Pathology RESULT BELOW Laboratory test 04/14/2019 [facility] [place] Clotest SEE 2 finding RESULT BELOW Laboratory test 04/14/2019 [facility] [place] SEE 3 finding Pathology Order RESULT BELOW Xray 02/17/2019 [facility] [place] Chest Ap Or Port <pendin g> Celiac Panel! 02/03/2019 [facility] Endomysial AB QN < pendin [address] [facility] Serum g> [place] [address] [phone] Transglutaminase 02/03/2019 [facility] Transglutaminase < pendin Iga/Igg [address] [facility] AB Iga g> [place] [address] [phone] Transglutaminase AB Igg <pending> Gliadin Igg/Iga AB 02/03/2019 [facility] Gliadin Iga < pending> [facility] [place] [id number] [phone] Gliadin Igg <pending> CBC W/Auto 02/01/2019 [facility] White Blood <pending> Differential(!) Count Ser Auto CNT RBC Red Blood Count <pending> Hemoglobin Blood <pending> Hematocrit <pending> MCV (Corpuscular Volume) <pending> MCH (Corpuscular Hemoglobin) <pending> MCHC (Corpuscular Hemog Conc) <pending> RDW <pending> Platelet Count Blood Auto CNT <pending> MPV <pending> Lymph% <pending> Calloway% <pending> Neutrophil % <pending> Absolute Lymphocytes <pending> Absolute Monocytes <pending> Absolute Neutrophils <pending> 1 SEE RESULT BELOW Name: STALIN GUERRERO Mayco : [address]: Trina Bower MD Acct: [id number] Unit: [id number] AGE: 34 Location: ENDO Re05/05/19 SEX: F Status: DEP REF SPEC: [id number] JEANETH: 05/05/19 [facility] [address]: Trina Jasmine MD REQ: [id number] RECD: 05/05/19172 STATUS: BETTY VELEZ DR: Armond Zhou MD _ ORDERED: LEVEL 4/2 FINAL DIAGNOSIS 1. Gastroesophageal junction, biopsy: -- Benign squamous and columnar-type mucosa with chronic inflammation. -- Intestinal metaplasia is absent. -- Dysplasia is absent. 2. Esophagus, biopsy: -- Benign squamous mucosa with mild erosive changes. -- No columnar component present for evaluation. -- No evidence of eosinophilic esophagitis. CLINICAL HISTORY Squamous papilloma POST-OPERATIVE DIAGNOSIS EGD: mildly irregular gastroesophageal junction - biopsy; unknown tiny nodule - biopsy; gastric normal (few tiny polyps); duodenum - normal GROSS DESCRIPTION 1. The specimen is received in formalin labeled, GE Junction Biopsies, and consists of a 0.7 by up to 0.5 x 0.2 cm aggregate of flannery-white irregular soft tissue fragments which is submitted entirely in one cassette. CONTINUED ON NEXT PAGE DEPARTMENT OF PATHOLOGY, [facility] [address] [place] [address] Wolfgang Smith M.D. Director [facility] # [id number] 2. The specimen is received in formalin labeled, Esophageal Nodule Biopsies , and consists of a 0.5 x 0.2 by up to 0.2 cm white-pink irregular soft tissue fragment which is submitted entirely in one cassette. Signed by and Reported on: Della Cuellar MD 05/06/19 1716 END OF REPORT DEPARTMENT OF PATHOLOGY, [facility] [address] [place], [place] [address] Wolfgang Smith M.D. Director [facility] # [id number] SEE RESULT BELOW Name: STALIN GUERRERO : [address]: Trina Bower MD Acct: [id number] Unit: [id number] AGE: 34 Location: ENDO Re05/05/19 SEX: F Status: DEP REF SPEC: [id number] JEANETH: 05/05/[address] [facility] DR: Trina Jasmine MD REQ: [id number] RECD: 05/05/19 STATUS: BETTY VELEZ DR: Armond Zhou MD _ ORDERED: LEVEL 4/2 FINAL DIAGNOSIS 1. Gastroesophageal junction, biopsy: -- Benign squamous and columnar-type mucosa with chronic inflammation. -- Intestinal metaplasia is absent. -- Dysplasia is absent. 2. Esophagus, biopsy: -- Benign squamous mucosa with mild erosive changes. -- No columnar component present for evaluation. -- No evidence of eosinophilic esophagitis. CLINICAL HISTORY Squamous papilloma POST-OPERATIVE DIAGNOSIS EGD: mildly irregular gastroesophageal junction - biopsy; unknown tiny nodule - biopsy; gastric normal (few tiny polyps); duodenum - normal GROSS DESCRIPTION 1. The specimen is received in formalin labeled, GE Junction Biopsies, and consists of a 0.7 by up to 0.5 x 0.2 cm aggregate of flannery-white irregular soft tissue fragments which is submitted entirely in one cassette. CONTINUED ON NEXT PAGE DEPARTMENT OF PATHOLOGY, [address] [place] [address] Wolfgang Smith M.D. Director [facility] # [id number] 2. The specimen is received in formalin labeled, Esophageal Nodule Biopsies , and consists of a 0.5 x 0.2 by up to 0.2 cm white-pink irregular soft tissue fragment which is submitted entirely in one cassette. Signed by and Reported on: Della Cuellar MD 05/06/19 1716 END OF REPORT DEPARTMENT OF PATHOLOGY, [address] [place] [address] Wolfgang Smith M.D. Director [facility] # [id number] SEE RESULT BELOW Name: STALIN GUERRERO : [address]: Trina Bower MD Acct: [id number] Unit: [id number] AGE: 34 Location: ENDO Re05/05/19 SEX: F Status: DEP REF SPEC: [id number] JEANETH: 05/05/19 [facility] [address]: Trina Jasmine MD REQ: [id number] RECD: 05/05/19 STATUS: BETTY VELEZ DR: Armond Zhou MD _ ORDERED: LEVEL 4/2 FINAL DIAGNOSIS 1. Gastroesophageal junction, biopsy: -- Benign squamous and columnar-type mucosa with chronic inflammation. -- Intestinal metaplasia is absent. -- Dysplasia is absent. 2. Esophagus, biopsy: -- Benign squamous mucosa with mild erosive changes. -- No columnar component present for evaluation. -- No evidence of eosinophilic esophagitis. CLINICAL HISTORY Squamous papilloma POST-OPERATIVE DIAGNOSIS EGD: mildly irregular gastroesophageal junction - biopsy; unknown tiny nodule - biopsy; gastric normal (few tiny polyps); duodenum - normal GROSS DESCRIPTION 1. The specimen is received in formalin labeled, GE Junction Biopsies, and consists of a 0.7 by up to 0.5 x 0.2 cm aggregate of flannery-white irregular soft tissue fragments which is submitted entirely in one cassette. CONTINUED ON NEXT PAGE DEPARTMENT OF PATHOLOGY, [facility] [address] [place] [address] Wolfgang Smith M.D. Director [facility] # [id number] 2. The specimen is received in formalin labeled, Esophageal Nodule Biopsies , and consists of a 0.5 x 0.2 by up to 0.2 cm white-pink irregular soft tissue fragment which is submitted entirely in one cassette. Signed by and Reported on: Della Cuellar MD 05/06/19 1716 END OF REPORT DEPARTMENT OF PATHOLOGY, [facility] [address] [place], [place] [address] Wolfgang Smith M.D. Director [facility] # [id number] 2 SEE RESULT BELOW Name: SOFYASTALIN Mayco : [address]: Trina Bower MD Acct: [id number] Unit: [id number] AGE: 34 Location: ENDO Re04/14/19 SEX: F Status: REG REF SPEC: [id number] JEANETH: 04/14/19-[address]: Trina Jasmine MD REQ: [id number] RECD: 04/14/19 STATUS: ANUJ VELEZ DR: Armond Zhou MD _ SOURCE: GAS ANTRUM [facility]: ORDERED: Clotest Procedure Result Reported Site Clotest Final 04/15/19803 ML Clotest Negative * - Main Lab . END OF REPORT DEPARTMENT OF PATHOLOGY, [address] [place] [address] Wolfgang Smith M.D. Director [facility] # [id number] SEE RESULT BELOW Name: STALIN GUERRERO : [address]: Trina Bower MD Acct: [id number] Unit: [id number] AGE: 34 Location: ENDO Re04/14/19 SEX: F Status: REG REF SPEC: [id number] JEANETH: 04/14/[address] [facility] [address]: Trina Jasmine MD REQ: [id number] RECD: 04/14/193914 STATUS: COMP OTHR DR: Armond Zhou MD _ SOURCE: GAS ANTRUM SPDESC: ORDERED: Clotest Procedure Result Reported Site Clotest Final 04/15/19- 0804 ML Clotest Negative * ML - Main Lab . END OF REPORT DEPARTMENT OF PATHOLOGY, [address] [place] [address] Wolfgang Smith M.D. Director [facility] # [id number] 3 SEE RESULT BELOW Name: STALIN GUERRERO : [address]: Trina Bower MD Acct: [id number] Unit: [id number] AGE: 34 Location: ENDO Re04/14/19 SEX: F Status: DEP REF SPEC: [id number] JEANETH: 04/14/[address] [facility] [address]: Trina Jasmine MD REQ: [id number] RECD: 04/14/19 STATUS: BETTY VELEZ DR: Armond Elmore MD _ ORDERED: LEVEL 4/4 FINAL DIAGNOSIS 1. Small bowel, duodenum, biopsy: -- Small bowel mucosa with normal villous architecture and no significant pathologic abnormality. -- No villous blunting or increased lamina propria lymphoplasmacytic infiltrate identified. 2. Gastroesophageal junction, biopsy: -- Gastroesophageal transition zone mucosa with mild reflux esophagitis. -- No goblet cell/intestinal metaplasia or dysplasia is identified. 3. Esophageal nodule, biopsy: -- Squamous papilloma pending p16 4. Colon, rectum, biopsy: -- Hyperplastic polyp. CLINICAL HISTORY Iron deficiency anemia; gastroesophageal reflux disease POST-OPERATIVE DIAGNOSIS EGD: esophagus - ok; 5 mm nodule distal esophagus; mildly irregular z line at 39 cm; gastric - ok; percy test; duodenum - ok; no arteriovenous malformations; duodenum biopsy; colonoscopy: to terminal ileum; normal; 2 mm rectal polyp jumbo; hyperplastic adenoma polyp CONTINUED ON NEXT PAGE DEPARTMENT OF PATHOLOGY, [address] [place] [address] Wolfgang Smith M.D. Director [facility] # [id number] GROSS DESCRIPTION 1. The specimen is received in formalin labeled, Biopsy Duodenum, and consists of a 1.2 x 0.4 by up to 0.2 cm aggregate of flannery-pink irregular soft tissue fragments which is submitted entirely in one cassette. 2. The specimen is received in formalin labeled, Biopsy GE Junction, and consists of a 0.6 x 0.5 by up to 0.2 cm aggregate of flannery-pink irregular soft tissue fragments which is submitted entirely in one cassette. 3. The specimen is received in formalin labeled, Biopsy Esophageal Nodule, and consists of a 0.4 x 0.4 x 0.1 cm aggregate of white-pink irregular soft tissue fragments which is submitted entirely in one cassette. 4. The specimen is received in formalin labeled, Biopsy Rectal Polyp, and consists of a 0.5 x 0.3 x 0.1 cm flannery-pink irregular soft tissue fragment which is submitted entirely in one cassette. Signed by and Reported on: Wolfgang Smith MD [id number] END OF REPORT DEPARTMENT OF PATHOLOGY, [address] [place] [address] Wolfgang Smith M.D. Director [facility] # [id number] SEE RESULT BELOW Name: STALIN GUERRERO : [address]: Trina Bower MD Acct: [id number] Unit: [id number] AGE: 34 Location: ENDO Re04/14/19 SEX: F Status: DEP REF SPEC: [id number] JEANETH: 04/14/19-[address] [facility] [address]: Trina Jasmine MD REQ: [id number] RECD: 04/14/19 STATUS: BETTY VELEZ DR: Armond Elmore MD _ ORDERED: LEVEL 4/4 FINAL DIAGNOSIS 1. Small bowel, duodenum, biopsy: -- Small bowel mucosa with normal villous architecture and no significant pathologic abnormality. -- No villous blunting or increased lamina propria lymphoplasmacytic infiltrate identified. 2. Gastroesophageal junction, biopsy: -- Gastroesophageal transition zone mucosa with mild reflux esophagitis. -- No goblet cell/intestinal metaplasia or dysplasia is identified. 3. Esophageal nodule, biopsy: -- Squamous papilloma pending p16 4. Colon, rectum, biopsy: -- Hyperplastic polyp. CLINICAL HISTORY Iron deficiency anemia; gastroesophageal reflux disease POST-OPERATIVE DIAGNOSIS EGD: esophagus - ok; 5 mm nodule distal esophagus; mildly irregular z line at 39 cm; gastric - ok; percy test; duodenum - ok; no arteriovenous malformations; duodenum biopsy; colonoscopy: to terminal ileum; normal; 2 mm rectal polyp jumbo; hyperplastic adenoma polyp CONTINUED ON NEXT PAGE DEPARTMENT OF PATHOLOGY, [address] [place] [address] Wolfgang Smith M.D. Director [facility] # [id number] GROSS DESCRIPTION 1. The specimen is received in formalin labeled, Biopsy Duodenum, and consists of a 1.2 x 0.4 by up to 0.2 cm aggregate of flannery-pink irregular soft tissue fragments which is submitted entirely in one cassette. 2. The specimen is received in formalin labeled, Biopsy GE Junction, and consists of a 0.6 x 0.5 by up to 0.2 cm aggregate of flannery-pink irregular soft tissue fragments which is submitted entirely in one cassette. 3. The specimen is received in formalin labeled, Biopsy Esophageal Nodule, and consists of a 0.4 x 0.4 x 0.1 cm aggregate of white-pink irregular soft tissue fragments which is submitted entirely in one cassette. 4. The specimen is received in formalin labeled, Biopsy Rectal Polyp, and consists of a 0.5 x 0.3 x 0.1 cm flannery-pink irregular soft tissue fragment which is submitted entirely in one cassette. Signed by and Reported on: Wolfgang Smith MD 1417 END OF REPORT DEPARTMENT OF PATHOLOGY, [address] [place] [address] Wolfgang Smith M.D. Director [facility] # [id number] SEE RESULT BELOW Name: STALIN GUERRERO : [address]: Trina Bower MD Acct: [id number] Unit: [id number] AGE: 34 Location: ENDO Re04/14/19 SEX: F Status: DEP REF SPEC: [id number] JEANETH: 04/14/[address] [facility] [address]: Trina Jasmine MD REQ: [id number] RECD: 04/14/19 STATUS: BETTY VELEZ DR: Armond Elmore MD _ ORDERED: LEVEL 4/4 FINAL DIAGNOSIS 1. Small bowel, duodenum, biopsy: -- Small bowel mucosa with normal villous architecture and no significant pathologic abnormality. -- No villous blunting or increased lamina propria lymphoplasmacytic infiltrate identified. 2. Gastroesophageal junction, biopsy: -- Gastroesophageal transition zone mucosa with mild reflux esophagitis. -- No goblet cell/intestinal metaplasia or dysplasia is identified. 3. Esophageal nodule, biopsy: -- Squamous papilloma pending p16 4. Colon, rectum, biopsy: -- Hyperplastic polyp. CLINICAL HISTORY Iron deficiency anemia; gastroesophageal reflux disease POST-OPERATIVE DIAGNOSIS EGD: esophagus - ok; 5 mm nodule distal esophagus; mildly irregular z line at 39 cm; gastric - ok; percy test; duodenum - ok; no arteriovenous malformations; duodenum biopsy; colonoscopy: to terminal ileum; normal; 2 mm rectal polyp jumbo; hyperplastic adenoma polyp CONTINUED ON NEXT PAGE DEPARTMENT OF PATHOLOGY, [facility] [address] [place], [place] [address] Wolfgang Smith M.D. Director [facility] # [id number] GROSS DESCRIPTION 1. The specimen is received in formalin labeled, Biopsy Duodenum, and consists of a 1.2 x 0.4 by up to 0.2 cm aggregate of flannery-pink irregular soft tissue fragments which is submitted entirely in one cassette. 2. The specimen is received in formalin labeled, Biopsy GE Junction, and consists of a 0.6 x 0.5 by up to 0.2 cm aggregate of falnnery-pink irregular soft tissue fragments which is submitted entirely in one cassette. 3. The specimen is received in formalin labeled, Biopsy Esophageal Nodule, and consists of a 0.4 x 0.4 x 0.1 cm aggregate of white-pink irregular soft tissue fragments which is submitted entirely in one cassette. 4. The specimen is received in formalin labeled, Biopsy Rectal Polyp, and consists of a 0.5 x 0.3 x 0.1 cm flannery-pink irregular soft tissue fragment which is submitted entirely in one cassette. Signed by and Reported on: Wolfgang Smith MD 1417 END OF REPORT DEPARTMENT OF PATHOLOGY, [facility] [address] [place], [place] [address] Wolfgang Smith M.D. Director [facility] # [id number] Procedures Description No Information Available Medical Devices Description No Information Available Encounters Type Date Location Provider Dx Diagnosis Office Visit 03/05/2019 [facility]ina D50.9 Iron deficiency 2:[facility]p [facility] Bower MD anemia, unspecified K21.9 Gastro-esophageal reflux disease without esophagitis Assessments Date Code Description Provider 03/05/2019 D50.9 Iron deficiency anemia, unspecified Trina Bower MD 03/05/2019 K21.9 Gastro-esophageal reflux disease without Trina Jasmine MD esophagitis Plan of Treatment No Information Available Functional Status Description No Information Available Mental Status Description No Information Available Referrals Description No Information Available
[2019-05-30 23:01] LABS: ABS Eosinophils 0.1 10^3/ul (0-0.6); ABS Lymphocytes 1.8 10^3/ul (1.0-4.8); ABS Monocytes 0.4 10^3/ul (0-0.8); ABS Neutrophils 3.9 10^3/ul (1.5-7.7); Eosinophil % 1.9 %; Hematocrit 36 % (35-47); Hemoglobin 12.1 g/dL (12.0-16.0); Lymphocyte % 28.8 %; Mean Corpuscular HGB Conc 34 g/dL (31-36); Mean Corpuscular Hemoglobin 29 pg (27-31); Mean Corpuscular Volume 86 fL (80-97); Mean Platelet Volume 7.2 fL (7.4-10.4); Platelet Count 288 10^3/uL (150-450); Red Blood Count 4.17 10^6 /uL (3.70-4.87); Red Cell Distribution Width 17 % (10-15); White Blood Count 6.3 10^3/uL (3.5-10.8)
[2019-05-30 23:27] LABS: ALT 8 U/L (7-52); AST 13 U/L (13-39); Albumin 4.1 g/dL (3.2-5.2); Albumin/Globulin Ratio 1.6 (1-3); Alkaline Phosphatase 29 U/L (34-104); Anion Gap 6 mmol/L (2-11); BUN/Creatinine Ratio 21.1 (8-20); Blood Urea Nitrogen 19 mg/dL (6-24); C Reactive Protein 2.25 mg/L (<8.01); CO2 Carbon Dioxide 23 mmol/L (22-32); Calcium 9.1 mg/dL (8.6-10.3); Chloride 111 mmol/L (101-111); EGFR African American 85.7 (>60); EGFR Non-African American 70.8 (>60); Globulin 2.6 g/dL (2-4); Glucose 108 mg/dL (70-100); Potassium 3.9 mmol/L (3.5-5.0); Sodium 140 mmol/L (135-145); Total Protein 6.7 g/dL (6.4-8.9)
[2019-05-30 23:33] LABS: HCG Pregnancy < 0.60 mIU/mL
[2019-05-31 00:43] VITALS: BP 127/90
== END 2019-05-31 00:40 | disposition home or self-care (01) ==
LOC: ED 21:40
DX: N93.8 Other specified abnormal uterine and vaginal bleeding (principal); Z79.899 Other long term (current) drug therapy; J45.909 Unspecified asthma, uncomplicated; D64.9 Anemia, unspecified; F41.9 Anxiety disorder, unspecified; F32.9 Major depressive disorder, single episode, unspecified
CPT/HCPCS: 36415; 76830; 80053; 84702; 85025; 86140; 99283

== ENCOUNTER 2020-03-29 03:05 | Inpatient (IN) ==
[2020-03-29] MEDS ORDERED: ceFOXitin 2 GM IVPREMIX 2 GM/50 ML BAG ONE (04:20)
[2020-03-29] MEDS ORDERED: Lactated Ringers 1000 ml BAG 1,000 ML IV ONE (04:23)
[2020-03-29] MEDS ORDERED: Buffered Lidocaine 1% SYRIN 1 ml INTRADERM ONE (04:23)
[2020-03-29] MEDS ORDERED: ceFOXitin 2 GM IVPREMIX 2 GM/50 ML BAG IVPB ONE (04:23)
[2020-03-29] MEDS ORDERED: Morphine PF AMP (0.5MG/ML) 5 MG/10 ML AMP ONE (04:59)
[2020-03-29] MEDS ORDERED: Oxytocin 10 UNITS/ML 1 ML VIAL ONE (04:59)
[2020-03-29] MEDS ORDERED: Lactated Ringers 1000 ml BAG 1,000 ML IV SCH ×2 (05:00→07:00)
[2020-03-29 05:36] LABS: Urine Benzodiazepine Screen None Detected (None Detect); Urine Cannabinoids Screen None Detected (None Detect); Urine Opiates Screen None Detected (None Detect)
[2020-03-29] MEDS ORDERED: Prochlorperazine 5 mg/ml 2 ml VIAL (10 mg) ONE (05:50)
[2020-03-29] MEDS ORDERED: Naloxone 0.4 mg VIAL 0.4 mg/ml 1 ml VIAL IV PRN ×2 (06:28)
[2020-03-29] MEDS ORDERED: Ondansetron 4 mg VIAL 2 MG/ML 2 ml VIAL IV PRN (06:28)
[2020-03-29] MEDS ORDERED: Albuterol HFA INHALER 8 gm MDI INH PRN (06:31)
[2020-03-29] MEDS ORDERED: Measles, Mumps,Rubella VACC 0.5 ML/VIAL SUBCUT ONE (06:34)
[2020-03-29] MEDS ORDERED: Witch Hazel PAD JAR TOPICAL PRN (06:34)
[2020-03-29] MEDS ORDERED: Glycerin ADULT 2.4 gm SUPP PR PRN (06:34)
[2020-03-29] MEDS ORDERED: Dibucaine 1% OINT 28.35 GM TUBE PR PRN (06:34)
[2020-03-29] MEDS ORDERED: Oxytocin in LR 20 UNITS/1,000 ML BAG IVPB ONE (06:47)
[2020-03-29] MEDS ORDERED: Oxytocin in LR 20 UNITS/1,000 ML BAG IVPB SCH (07:00)
[2020-03-29] MEDS ORDERED: Cholecalciferol (VIT D3) 1,000 unit TAB PO SCH (09:00)
[2020-03-29] MEDS ORDERED: DOCOSAHEXAENOIC ACID 200 MG PO SCH (09:00)
[2020-03-29] MEDS: Cholecalciferol (VIT D3) 1,000 unit TAB PO SCH (22:12)
[2020-03-29] MEDS: DOCOSAHEXAENOIC ACID 200 MG PO SCH (22:13)
[2020-03-30 07:08] LABS: ABS Basophils 0.1 10^3/ul (0-0.2); ABS Eosinophils 0.1 10^3/ul (0-0.6); ABS Lymphocytes 1.2 10^3/ul (1.0-4.8); ABS Monocytes 0.4 10^3/ul (0-0.8); Eosinophil % 0.8 %; Hematocrit 32 % (35-47); Hemoglobin 11.3 g/dL (12.0-16.0); Lymphocyte % 11.3 %; Mean Corpuscular HGB Conc 35 g/dL (31-36); Mean Corpuscular Hemoglobin 33 pg (27-31); Mean Corpuscular Volume 94 fL (80-97); Mean Platelet Volume 7.7 fL (7.4-10.4); Platelet Count 178 10^3/uL (150-450); Red Blood Count 3.42 10^6 /uL (3.70-4.87); Red Cell Distribution Width 13 % (10-15); White Blood Count 10.7 10^3/uL (3.5-10.8)
[2020-03-30] MEDS: Cholecalciferol (VIT D3) 1,000 unit TAB PO SCH (20:38)
[2020-03-30] MEDS: DOCOSAHEXAENOIC ACID 200 MG PO SCH (21:00)
[2020-03-31 09:57] VITALS: BP 112/60
== END 2020-03-31 16:32 | disposition home or self-care (01) | DRG 788 ==
LOC: MCHOB 03:05
PROVIDERS: ADMIT Obstetrics & Gynecology; ATTEND Obstetrics & Gynecology